=== PATIENT | female | born 1965 | race Caucasian/White ===

== ENCOUNTER 2017-08-11 09:36 | Day surgery (SDC) | payer OTHER ==
[~2017-08-11] VITALS: Ht 162.6 cm; Wt 77.1 kg
[~2017-08-11 09:36] MED LIST: Abilify2 MG PO; CHOL10002 PO; RAME8 PO; ROSU10TA PO; SERT100 PO
== END 2017-08-11 23:13 | disposition home or self-care (01) ==
LOC: ORSCMMR 09:36 → ORD 11:00 → ORSCMMR 11:00
PROVIDERS: Surgery
PROC: 0DBL8ZX Excision of Transverse Colon, Via Natural or Artificial Opening Endoscopic, Diagnostic (ICD-10-PCS; principal; 2017-08-11 11:00)
PROC: 0HB0XZX Excision of Scalp Skin, External Approach, Diagnostic (ICD-10-PCS; principal; 2017-08-11 11:00)
DX: Z12.11 Encounter for screening for malignant neoplasm of colon (principal); L72.11 Pilar cyst; Z79.899 Other long term (current) drug therapy
CPT/HCPCS: 88304; 88305; J0690; J1100; J2001; J2250; J2370; J2405; J7120